=== PATIENT | female | born 1975 | race Caucasian/White ===

== ENCOUNTER → 2016-10-17 | Outpatient (CLI) | payer OTHER | END | disposition home or self-care (01) | LOC: MA 08:16 | PROC: BH02ZZZ Plain Radiography of Bilateral Breasts (ICD-10-PCS; principal; 2016-10-17) | DX: Z12.31 Encounter for screening mammogram for malignant neoplasm of breast (principal) | CPT/HCPCS: G0202 ==

== ENCOUNTER → 2017-04-21 | Outpatient (CLI) | payer OTHER | END | disposition home or self-care (01) | LOC: RD 09:57 | DX: M25.531 Pain in right wrist (principal); M25.511 Pain in right shoulder; M25.521 Pain in right elbow ==

== ENCOUNTER → 2018-04-09 | Outpatient (CLI) | payer OTHER ==
[2018-04-09 12:13] LABS: BASOPHIL % 0.4 % (0-2); PLATELET COUNT 321 x10^3mcL (130-400)
[2018-04-09 12:33] LABS: ALKALINE PHOSPHATASE 49 U/L (46-116); ALT/SGPT 16 U/L (14-59); AST/SGOT 14 U/L (15-37); BILIRUBIN TOTAL 0.4 mg/dL (0.20-1.00); CALCIUM 8.5 mg/dL (8.5-10.1); CARBON DIOXIDE 27.3 mmol/L (21-32); CHLORIDE SERUM 105 mmol/L (98-107); CHOLESTEROL 186 mg/dL (<200); CREATININE SERUM 0.5 mg/dL (0.6-1.0); GFR1 > 60 mL/min; GLUCOSE SERUM 90 mg/dL (74-106); POTASSIUM SERUM 3.1 mmol/L (3.5-5.1); SODIUM SERUM 138 mmol/L (136-145); TOTAL PROTEIN, SERUM 6.8 g/dL (6.4-8.2); TRIGLYCERIDES 104 mg/dL (<150)
[2018-04-09 12:34] LABS: CHOLESTEROL/HDL RATIO 2.4; HDL CHOLESTEROL 76 mg/dL (40-60)
== END | disposition home or self-care (01) ==
LOC: CT 11:35
PROVIDERS: Internal Medicine
PROC: BW21ZZZ Computerized Tomography (CT Scan) of Abdomen and Pelvis (ICD-10-PCS; principal; 2018-04-09)
DX: Z00.00 Encounter for general adult medical examination without abnormal findings (principal); K37 Unspecified appendicitis; K59.00 Constipation, unspecified

== ENCOUNTER → 2018-05-08 | Outpatient (CLI) | payer OTHER | END | disposition home or self-care (01) | LOC: LB 10:13 | DX: E87.5 Hyperkalemia (principal) ==

== ENCOUNTER → 2018-05-20 | Outpatient (CLI) | payer OTHER ==
[2018-05-20 11:41] LABS: CALCIUM 7.9 mg/dL (8.5-10.1); CARBON DIOXIDE 27.4 mmol/L (21-32); CHLORIDE SERUM 103 mmol/L (98-107); CREATININE SERUM 0.7 mg/dL (0.6-1.0); GFR1 > 60 mL/min; GLUCOSE SERUM 93 mg/dL (74-106); POTASSIUM SERUM 3.6 mmol/L (3.5-5.1); SODIUM SERUM 139 mmol/L (136-145)
== END | disposition home or self-care (01) ==
LOC: LB 11:13
PROVIDERS: Internal Medicine
DX: E87.6 Hypokalemia (principal)

== ENCOUNTER 2018-05-22 00:08 | Emergency (ER) | payer OTHER ==
[~2018-05-22] VITALS: Ht 165.1 cm; Wt 90.7 kg
[2018-05-22 00:52] VITALS: Ht 165.1 cm; Wt 90.7 kg
[2018-05-22 00:58] VITALS: BP 143/98
== END 2018-05-22 00:58 | disposition other institution (70) ==
LOC: ED 00:08
DX: F10.10 Alcohol abuse, uncomplicated (principal); V43.52XA Car driver injured in collision with other type car in traffic accident, initial encounter; Y92.481 Parking lot as the place of occurrence of the external cause

== ENCOUNTER → 2018-06-30 | Outpatient (CLI) | payer OTHER | END | disposition home or self-care (01) | LOC: CT 11:36 | PROC: BW21ZZZ Computerized Tomography (CT Scan) of Abdomen and Pelvis (ICD-10-PCS; principal; 2018-06-30) | DX: R10.9 Unspecified abdominal pain (principal) ==

== ENCOUNTER → 2019-08-12 | Outpatient (CLI) | payer OTHER | END | disposition home or self-care (01) | LOC: RD 17:25 | DX: M79.671 Pain in right foot (principal) ==

== ENCOUNTER → 2019-12-16 | Outpatient (CLI) | payer OTHER ==
[2019-12-16 12:10] LABS: BASOPHIL % 1.2 % (0-2); PLATELET COUNT 375 x10^3mcL (130-400)
[2019-12-16 12:11] LABS: RED CELL DISTRIBUTION WIDTH 17.1 % (11.5-14.5)
[2019-12-16 13:09] LABS: ALKALINE PHOSPHATASE 54 U/L (46-116); ALT/SGPT 20 U/L (14-59); AST/SGOT 17 U/L (15-37); BILIRUBIN DIRECT 0.11 mg/dL (0.0-0.2); BILIRUBIN TOTAL 0.4 mg/dL (0.20-1.00); CALCIUM 8.1 mg/dL (8.5-10.1); CARBON DIOXIDE 24.3 mmol/L (21-32); CHLORIDE SERUM 105 mmol/L (98-107); CREATININE SERUM 0.7 mg/dL (0.6-1.0); GFR1 > 60 mL/min; GLUCOSE SERUM 91 mg/dL (74-106); POTASSIUM SERUM 3.9 mmol/L (3.5-5.1); SODIUM SERUM 140 mmol/L (136-145); TOTAL PROTEIN, SERUM 6.4 g/dL (6.4-8.2)
[2019-12-16 13:11] LABS: ALBUMIN 2.8 g/dL (3.4-5.0)
[2019-12-16 13:31] LABS: CHOLESTEROL 169 mg/dL (<200); TRIGLYCERIDES 65 mg/dL (<150)
[2019-12-16 13:38] LABS: HDL CHOLESTEROL 86 mg/dL (40-60)
== END | disposition home or self-care (01) ==
LOC: LB 11:48
PROVIDERS: ATTEND Internal Medicine
DX: Z00.00 Encounter for general adult medical examination without abnormal findings (principal)

== ENCOUNTER → 2020-02-04 | Outpatient (CLI) | payer OTHER ==
[2020-02-04 10:21] LABS: T4(THYROXINE) 3.8 ug/dL (4.7-13.3)
== END | disposition home or self-care (01) ==
LOC: MA 08:23
PROVIDERS: ATTEND Internal Medicine
PROC: BH02ZZZ Plain Radiography of Bilateral Breasts (ICD-10-PCS; principal; 2020-02-04)
DX: N95.1 Menopausal and female climacteric states (principal); Z12.31 Encounter for screening mammogram for malignant neoplasm of breast
CPT/HCPCS: 77067; 82670; 84402; 84403; 86376

== ENCOUNTER → 2020-02-16 | Outpatient (CLI) | payer OTHER | END | disposition home or self-care (01) | LOC: RD 08:41 → US 09:00 | PROVIDERS: ATTEND Internal Medicine | PROC: BH01ZZZ Plain Radiography of Left Breast (ICD-10-PCS; principal; 2020-02-16) | PROC: BH41ZZZ Ultrasonography of Left Breast (ICD-10-PCS; 2020-02-16) | DX: R92.8 Other abnormal and inconclusive findings on diagnostic imaging of breast (principal); M79.671 Pain in right foot | CPT/HCPCS: 76641; 77065 ==

== ENCOUNTER → 2020-03-29 | Outpatient (CLI) | payer OTHER ==
[2020-03-29 11:28] LABS: T4(THYROXINE) 5.2 ug/dL (4.7-13.3)
== END | disposition home or self-care (01) ==
LOC: LB 10:49
DX: E03.9 Hypothyroidism, unspecified (principal)

== ENCOUNTER → 2020-05-13 | Outpatient (CLI) | payer OTHER | END | disposition home or self-care (01) | LOC: LB 13:46 | DX: E03.9 Hypothyroidism, unspecified (principal) ==

== ENCOUNTER → 2020-06-23 | Outpatient (CLI) | payer OTHER ==
[2020-06-23 09:51] LABS: T4(THYROXINE) 5.9 ug/dL (4.7-13.3)
== END | disposition home or self-care (01) ==
LOC: LB 08:30
PROVIDERS: ATTEND Obstetrics & Gynecology
DX: E03.9 Hypothyroidism, unspecified (principal)
CPT/HCPCS: 86376

== ENCOUNTER → 2020-08-16 | Outpatient (CLI) | payer OTHER | END | disposition home or self-care (01) | LOC: LB 11:00 | PROVIDERS: ATTEND Internal Medicine | DX: E03.9 Hypothyroidism, unspecified (principal) | CPT/HCPCS: 82670; 84403 ==